=== PATIENT | male | born 1990 | race Caucasian/White ===

== ENCOUNTER 2018-01-04 09:48 | Emergency (ER) | payer BC, OTHER ==
[2018-01-04 10:22] VITALS: BP 150/80
--- NOTE | 2018-01-04 10:51 | ED ---
Upper Extremity Pain - HPI Summary HPI Summary: 27 yr old male with pain to the right thumb. The patient closed his right thumb in door of truck a couple days ago. He has had progressive hematoma formation under the nail and also pain in the thumb since this happened. The patient complains of pain that is moderate, worse with touching his thumb nail. He also complains of sinus pressure, yellow nasal discharge and post nasal drip. He has no other complaints. - History of Current Complaint Chief Complaint: UCTrauma Stated Complaint: RIGHT THUMB INJURY,CONGESTION Time Seen by Provider: 01/04/18 10:31 - Allergies/Home Medications Allergies/Adverse Reactions: Allergies Allergy/AdvReac Type Severity Reaction Status Date / Time No Known Allergies Allergy Verified 01/04/18 10:22 PMH/Surg Hx/FS Hx/Imm Hx Infectious Disease History: Yes Infectious Disease History: Reports: Hx Shingles Denies: Traveled Outside the [place] in Last 30 Days - Family History Known Family History: Positive: None - Social History Occupation: Employed Full-time Alcohol Use: Rare Substance Use Type: Reports: None Smoking Status (MU): Never Smoked Tobacco Review of Systems Constitutional: Negative Eyes: Negative Positive: Nasal Discharge, Other - sinus pressure Positive: Cough All Other Systems Reviewed And Are Negative: Yes Physical Exam Triage Information Reviewed: Yes Vital Signs On Initial Exam: Initial Vitals Temp Pulse Resp BP Pulse Ox 99.8 F 92 18 150/80 99 01/04/18 10:17 01/04/18 10:17 01/04/18 10:17 01/04/18 10:17 01/04/18 10:17 Vital Signs Reviewed: Yes Appearance: Positive: Well-Appearing, No Pain Distress Skin: Positive: Warm, Skin Color Reflects Adequate Perfusion Head/Face: Positive: Normal Head/Face Inspection Eyes: Positive: EOMI ENT: Positive: Normal ENT inspection, Nasal congestion, Sinus tenderness - bilateral Neck: Positive: Supple Respiratory/Lung Sounds: Positive: Other - normal effort Cardiovascular: Positive: Pulses are Symmetrical in both Upper and Lower Extremities Abdomen Description: Positive: Nontender Musculoskeletal: Positive: Other - right thumb with subungal hematoma and tenderness over the distal thumb. Neurological: Positive: Sensory/Motor Intact, Alert, Oriented to Person Place, Time, CN Intact II-III Psychiatric: Positive: Normal - [place] Coma Scale Best Eye Response: 4 - Spontaneous Best Motor Response: 6 - Obeys Commands Best Verbal Response: 5 - Oriented Coma Scale Total: 15 Procedures - Nail Trepanation Nail Trepanation Location: right thumb nail Method of Drainage: nail cauterized Sterile Dressing Applied: Yes Finger Splint: No Diagnostics - Vital Signs Vital Signs Temp Pulse Resp BP Pulse Ox 01/04/18 10:17 99.8 F 92 18 150/80 99 - Laboratory Lab Statement: Any lab studies that have been ordered have been reviewed, and results considered in the medical decision making process. Course/Dx - Course Course Of Treatment: 27 yr old tolerated nail trephenation well and bloody drainage expressed from the nail hole.. Gauze applied. Rx with Augmentin for sinusitis. FU with PMD for BP recheck. - Diagnoses Provider Diagnoses: Subungual hematoma of right thumb, Sinusitis, Hypertension Discharge - Sign-Out/Discharge Documenting (check all that apply): Discharge - Discharge Plan Condition: Good Disposition: HOME Prescriptions: Amoxicillin/Clavulanate TAB* [Augmentin TAB 875*] 875 mg PO BID #20 tab Patient Education Materials: Subungual Hematoma (ED), Sinusitis (ED), Hypertension (ED) Referrals: Non Staff,Doctor [Primary Care Provider] - 2 Days [facility] [place]] - 2 Days - Billing Disposition and Condition Condition: GOOD Disposition: HOME
--- NOTE | 2018-01-04 11:09 | RAD ---
Indication: Distal RIGHT thumb pain following crush injury 3 days ago. Comparison: No relevant prior exams available on the [facility] [place]. Technique: AP, lateral, and oblique views RIGHT thumb. REPORT AND IMPRESSION: Soft tissue swelling and subcutaneous emphysema at the dorsal aspect of the thumb at the nailbed extending to the periosteal surface of the distal phalanx tuft. No conspicuous foreign body, fracture, or malalignment.
== END 2018-01-04 11:21 | disposition home or self-care (01) ==
LOC: UCCORT 09:48
DX: S60.111A Contusion of right thumb with damage to nail, initial encounter (principal); W23.0XXA Caught, crushed, jammed, or pinched between moving objects, initial encounter; Y92.9 Unspecified place or not applicable
CPT/HCPCS: 99202; G0463

== ENCOUNTER 2019-02-21 19:38 | Emergency (ER) | payer BC ==
[2019-02-21 20:28] VITALS: BP 144/67
[2019-02-21] MEDS ORDERED: Acetaminophen TAB* 325 MG PO ONE (20:40)
--- NOTE | 2019-02-21 21:13 | ED ---
Upper Extremity Pain - HPI Summary HPI Summary: pt is a 29 year old male who presents with left shoulder pain. he denies any acute trauma. he states that he started having pain this past weekend. no trauma. he states he may have injured it in the past. he has taken an occasional tyelnol or motrin. - History of Current Complaint Chief Complaint: UCUpperExtremity Stated Complaint: LEFT SHOULDER COMPLAINT Hx Obtained From: Patient - Allergies/Home Medications Allergies/Adverse Reactions: Allergies Allergy/AdvReac Type Severity Reaction Status Date / Time No Known Allergies Allergy Verified 02/21/19 20:28 Home Medications: Home Medications Acetaminophen [Pain Relief Extra Strength] 100 mg PO Q4HR PRN 02/21/19 [History Confirmed 02/21/19] Ibuprofen 400 mg PO Q6HR PRN 02/21/19 [History Confirmed 02/21/19] PMH/Surg Hx/FS Hx/Imm Hx Infectious Disease History: Yes Infectious Disease History: Reports: Hx Shingles Denies: Traveled Outside the [place] in Last 30 Days - Family History Known Family History: Positive: None - Social History Alcohol Use: Rare Substance Use Type: Reports: None Smoking Status (MU): Light Every Day Tobacco Smoker Review of Systems Constitutional: Negative Eyes: Negative ENT: Negative Cardiovascular: Negative Respiratory: Negative Gastrointestinal: Negative Genitourinary: Negative Positive: Arthralgia Skin: Negative Neurological: Negative Positive: Depressed - denies suicidal or homicidal ideations or any hallucinations All Other Systems Reviewed And Are Negative: No Physical Exam Triage Information Reviewed: Yes Vital Signs On Initial Exam: Initial Vitals Temp Pulse Resp BP Pulse Ox 98.3 F 76 16 144/67 99 02/21/19 20:21 02/21/19 20:21 02/21/19 20:21 02/21/19 20:21 02/21/19 20:21 Vital Signs Reviewed: Yes Appearance: Positive: Well-Appearing, No Pain Distress, Well-Nourished Skin: Positive: Warm, Dry Head/Face: Positive: Normal Head/Face Inspection Eyes: Positive: Normal, EOMI, BREN ENT: Positive: Hearing grossly normal, Pharynx normal Neck: Positive: Supple, Nontender Respiratory/Lung Sounds: Positive: Clear to Auscultation, Breath Sounds Present Cardiovascular: Positive: Normal, RRR Abdomen Description: Positive: Nontender, Soft Bowel Sounds: Positive: Present Musculoskeletal: Positive: Limited @ - left shoulder Neurological: Positive: Alert, Oriented to Person Place, Time, CN Intact II-III Psychiatric: Positive: Normal AVPU Assessment: Alert Diagnostics - Vital Signs Vital Signs Temp Pulse Resp BP Pulse Ox 02/21/19 20:21 98.3 F 76 16 144/67 99 - Laboratory Lab Statement: Any lab studies that have been ordered have been reviewed, and results considered in the medical decision making process. Course/Dx - Course Course Of Treatment: pt has no hx of trauma. he has limited rom of left shoulder. I am concerned about possible rotator cuff injury. shoulder xray is negative. pt given po tylenol. he was given a referral to ortho. pt given a work excuse for light duty. - Diagnoses Provider Diagnoses: Left shoulder strain Discharge - Sign-Out/Discharge Documenting (check all that apply): Patient Departure All imaging exams completed and their final reports reviewed: No - Discharge Plan Condition: Stable Disposition: HOME Patient Education Materials: Shoulder Sprain (ED) Forms: *Work Release Referrals: No Primary Care Phys,NOPCP [Primary Care Provider] - Tal Triplett MD [Medical Doctor] - Additional Instructions: Take tylenol and motrin for pain. avoid overuse. if your pain persists and you are having difficulty raising your arm, you may have a rotator cuff injury. If this is the case, you will need an outpatient MRI of your left shoulder. you will also need follow up with ortho. I have given you a referral to an orthopedic surgeon. - Billing Disposition and Condition Condition: STABLE Disposition: Home
--- NOTE | 2019-02-22 08:59 | UC ---
- Progress Note Progress Note: left shoulder xray report : IMPRESSION: FINDINGS MOST CONSISTENT WITH CALCIFIC TENDINITIS OR BURSITIS Course/Dx - Diagnoses Provider Diagnoses: Left shoulder strain Discharge - Sign-Out/Discharge Documenting (check all that apply): Patient Departure All imaging exams completed and their final reports reviewed: Yes - Discharge Plan Condition: Stable Disposition: HOME Patient Education Materials: Shoulder Sprain (ED) Forms: *Work Release Referrals: Tal Triplett MD [Medical Doctor] - No Primary Care Phys,NOPCP [Primary Care Provider] - Additional Instructions: Take tylenol and motrin for pain. avoid overuse. if your pain persists and you are having difficulty raising your arm, you may have a rotator cuff injury. If this is the case, you will need an outpatient MRI of your left shoulder. you will also need follow up with ortho. I have given you a referral to an orthopedic surgeon. - Billing Disposition and Condition Condition: STABLE Disposition: Home
== END 2019-02-21 21:20 | disposition home or self-care (01) ==
LOC: UCCORT 19:38
DX: S46.912A Strain of unspecified muscle, fascia and tendon at shoulder and upper arm level, left arm, initial encounter (principal); X58.XXXA Exposure to other specified factors, initial encounter; F17.210 Nicotine dependence, cigarettes, uncomplicated
CPT/HCPCS: 99211; A9270-GY; G0463

== ENCOUNTER 2019-07-27 09:07 | Emergency (ER) | payer BC ==
[2019-07-27 09:44] VITALS: BP 146/83
--- NOTE | 2019-07-27 10:09 | UC ---
Abdominal Pain Male HPI - HPI Summary HPI Summary: epigastric abdominal pain x 1 day woke up this morning with 8 out of 10 pain , no nausea , vomited once no radiation of the pain , nothing made the pain better or worse no diarrhea, no constipation , no urinary sx denies any fever - History of Current Complaint Chief Complaint: UCGI Stated Complaint: UPSET STOMACH-PAIN,VOMITING Time Seen by Provider: 07/27/19 09:51 Hx Obtained From: Patient Onset/Duration: Sudden Onset, Lasting Days - 1, Still Present Timing: Constant Severity Initially: Moderate Severity Currently: Moderate Pain Intensity: 7 Location: Epigastric Radiates: No Character: Burning Aggravating Factor(s): Nothing Alleviating Factor(s): Nothing Associated Signs And Symptoms: Positive: Vomiting. Negative: Diaphoresis, Fever , Cough, Chest Pain, Back Pain, Constipation, Blood in Stool, Urinary Symptoms, Decreased Appetite, Nausea, Diarrhea, Penile Discharge - Allergies/Home Medications Allergies/Adverse Reactions: Allergies Allergy/AdvReac Type Severity Reaction Status Date / Time No Known Allergies Allergy Verified 07/27/19 09:44 Home Medications: Home Medications Aspirin/Sod Bicarb/Citric Acid [[place]ie-[place] Es Tab Eff] 2 each PO ONCE PRN 03/09 [History Confirmed 07/27/19] Mv-Mn/Folic Acid/Lutein/Iqp346 [Mens Multivit High Potency Tab] 1 each PO DAILY 07/27/19 [History Confirmed 07/27/19] PMH/Surg Hx/FS Hx/Imm Hx Previously Healthy: Yes - Surgical History Surgical History: None - Family History Known Family History: Positive: None Negative: Diabetes - Social History Alcohol Use: Weekly Alcohol Amount: 4-5 Fridays Substance Use Type: Marijuana Substance Use Comment - Amount & Last Used: early Jun 2019 Smoking Status (MU): Former Smoker When Did the Patient Quit Smoking/Using Tobacco: 1 week Review of Systems All Other Systems Reviewed And Are Negative: Yes Constitutional: Positive: Negative Skin: Positive: Negative Eyes: Positive: Negative ENT: Positive: Negative Respiratory: Positive: Negative Gastrointestinal: Positive: Abdominal Pain, Vomiting Genitourinary: Positive: Negative Is Patient Immunocompromised?: No Physical Exam Triage Information Reviewed: Yes Appearance: Well-Appearing, No Pain Distress, Well-Nourished Vital Signs: Initial Vital Signs Temp 97.7 F 07/27/19 09:33 Pulse 64 07/27/19 09:33 Resp 14 07/27/19 09:33 BP 146/83 07/27/19 09:33 Pulse Ox 100 07/27/19 09:33 Vital Signs Reviewed: Yes Eye Exam: Normal Eyes: Positive: Conjunctiva Clear ENT: Positive: Normal ENT inspection, Hearing grossly normal, Pharynx normal Neck: Positive: Supple, Nontender, No Lymphadenopathy Respiratory: Positive: Chest non-tender, Normal breath sounds Cardiovascular: Positive: RRR, No Murmur, Pulses Normal Abdomen Description: Positive: Soft, Other: - epigastric tenderness. Negative: No Organomegaly, CVA Tenderness (R), CVA Tenderness (L), Distended, Guarding Skin Exam: Normal Abd Pain Male Course/Dx - Differential Dx/Clinical Impression Provider Diagnosis: Epigastric abdominal pain Discharge ED - Sign-Out/Discharge Documenting (check all that apply): Patient Departure All imaging exams completed and their final reports reviewed: No Studies - Discharge Plan Condition: Stable Disposition: HOME Patient Education Materials: Gastritis (ED), Epigastric Pain (ED) Referrals: No Primary Care Phys,NOPCP [Primary Care Provider] - 7 Days Additional Instructions: will check blood work to r/o inflammation of your liver / pancreas cont. with rest, drink clear fluid, no alcohol call the office tomorrow for your lab results - Billing Disposition and Condition Condition: STABLE Disposition: Home
[2019-07-27 14:42] LABS: ABS Eosinophils 0.1 10^3/ul (0-0.6); ABS Lymphocytes 1.4 10^3/ul (1.0-4.8); ABS Monocytes 0.6 10^3/ul (0-0.8); ABS Neutrophils 8.9 10^3/ul (1.5-7.7); Eosinophil % 1.1 %; Hematocrit 45 % (42-52); Hemoglobin 15.1 g/dL (14.0-18.0); Lymphocyte % 12.6 %; Mean Corpuscular HGB Conc 34 g/dL (31-36); Mean Corpuscular Hemoglobin 31 pg (27-31); Mean Corpuscular Volume 91 fL (80-94); Mean Platelet Volume 7.9 fL (7.4-10.4); Platelet Count 183 10^3/uL (150-450); Red Blood Count 4.91 10^6 /uL (4.18-5.48); Red Cell Distribution Width 13 % (10-15)
[2019-07-27 14:51] LABS: Albumin 4.7 g/dL (3.2-5.2); Calcium 9.6 mg/dL (8.6-10.3); Total Bilirubin 0.5 mg/dL (0.2-1.0)
[2019-07-27 14:57] LABS: Albumin/Globulin Ratio 2.4 (1-3); BUN/Creatinine Ratio 20.2 (8-20); EGFR African American 131.7 (>60); EGFR Non-African American 108.8 (>60); Total Protein 6.7 g/dL (6.4-8.9)
== END 2019-07-27 10:35 | disposition home or self-care (01) ==
LOC: UCCORT 09:07
DX: J02.9 Acute pharyngitis, unspecified (principal); R53.83 Other fatigue; R42 Dizziness and giddiness
CPT/HCPCS: 36415; 80053; 82150; 83690; 85025; 99211; G0463